=== PATIENT | male | born 1960 | race Caucasian/White ===

== ENCOUNTER 2017-07-17 16:50 | Emergency (ER) | payer OTHER ==
--- NOTE | 2017-07-17 17:03 | ED AMS/SEIZURE/WEAK/DIZZY ---
History of Present Illness General Chief Complaint: General Adult Stated Complaint: POSSIBLE SEIZURE Source: patient, old records Exam Limitations: clinical condition, confusion Allergies Coded Allergies: No Known Allergies (07/17/17) Reconcile Medications Paroxetine HCl 20 MG TABLET 1 TAB PO DAILY MENTAL HEALTH (Reported) Paroxetine HCl 40 MG TABLET 1 TAB PO DAILY MENTAL HEALTH (Reported) Thiamine HCl (Vitamin B-1) 100 MG TABLET 1 TAB PO D HEALTH SUPPLEMENT ( Reported) Triage Note: PT TO ED BY AMBULANCE WITH REPORT OF QUESTIONABLE SEIZURE YESTERDAY AND TODAY. PTS NEIGHBORS CALLED [phone] LAST NIGHT WHEN THEY HEARD PT FALL. PT REFUSED TRANSPORT TO HOSPITAL AT THAT TIME. REPORTS FALL TODAY AGAIN AND UNSURE IF HE HAD A SEIZURE. DENIES HX OF. NOT ON BLOOD THINNERS. ADMITS TO DRINKING ONE BEER TODAY. ABRASIONS NOTED TO FOREHEAD AND NOSE. LACERATION NOTED TO LOWER LIP. Triage Nurses Notes Reviewed? 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, who presents emergency room in which history is limited due to patient having moments of syncope versus loss of consciousness versus seizure-like activity or patient states that yesterday he does not recall the events noted by EMS in which EMS states that they received a phone call from a neighbor for concerns of a fall or seizure like activity or EMS states that they evaluated patient yesterday had skin abrasions and facial wounds however patient refused EMS transport to ER Patient states that today he slept all day EMS state that they received another phone call from a neighbor hearing possible seizure like activity or a fall and patient's residency patient again does not recall the events Patient states that this is been going on "for some time" patient states he had one beer today and drinks 1-3 beers a day denies any seizure withdrawal history of alcohol denies any illicit drug use does smoke tobacco Patient currently complains of headache and facial pain and left anterior chest wall pain that's made worse with palpation Denies any abdominal pain nausea vomiting blurred vision neck pain back pain shortness of breath hemoptysis cough Denies any tongue biting or bowel and bladder incontinence episodes (Ash JAIME,Alvin) Vital Signs & Intake/Output Vital Signs & Intake/Output Vital Signs Date Time Temp Pulse Resp B/P B/P Pulse O2 O2 Flow FiO2 Mean Ox Delivery Rate 07/17 2004 98.5 81 19 130/83 97 Room Air 07/17 1951 98.5 74 18 127/88 95 Room Air 07/17 1817 Room Air 07/17 1659 98.5 87 19 137/87 97 (Kassidy PASCAL,Go Clements) Past History Travel History Traveled to [place] past 21 day No Medical History Any Pertinent Medical History? see below for history Cardiovascular: hypertension, hyperlipidemia Psychiatric: depression Endocrine: diabetes Surgical History Surgical History: non-contributory Psychosocial History What is your primary language Romanian Tobacco Use: Current Daily Use Daily Tobacco Use Amount/Type: => 5 Cigarettes daily ETOH Use: heavy use Illicit Drug Use: denies illicit drug use Family History Hx Contributory? No (Alvin Ronquillo) Review of Systems Review of Systems Constitutional: Reports: no symptoms. EENTM: Denies: blurred vision, double vision, visual changes. Respiratory: Reports: see HPI. Denies: cough, short of breath. Cardiovascular: Reports: see HPI, syncope. GI: Reports: no symptoms. Genitourinary: Reports: no symptoms. Musculoskeletal: Reports: no symptoms. Skin: Reports: no symptoms. Neurological/Psychological: Reports: see HPI, headache. Hematologic/Endocrine: Reports: see HPI, bleeding. Immunologic/Allergic: Reports: no symptoms. All Other Systems: Reviewed and Negative (Alvin Ronquillo) Physical Exam Physical Exam General Appearance: no apparent distress, comfortable Head: evidence of injury Eyes: Bilateral: PERRL, EOMI, other. Ears, Nose, Throat: normal pharynx, normal ENT inspection, hearing grossly normal Neck: normal inspection, no midline tenderness Respiratory: normal breath sounds, no respiratory distress Cardiovascular: regular rate/rhythm Peripheral Pulses: 2+ radial (R) Gastrointestinal: normal bowel sounds, soft, non-tender Extremities: normal range of motion Neurologic/Psych: no motor/sensory deficits, awake, alert, oriented x 3 Comments: PUPIL RIGHT 5 DILATION PUPIL LEFT 4 DILATION Diagram Body: 1) Normal inspection noted point tenderness upon palpation 2) Noted generalized superficial skin abrasions to forehead and nose 3) Noted swelling and point tenderness and well-healing laceration of the interior next area lower lip No dental trauma Core Measures ACS in differential dx? No CVA/TIA Diagnosis No Sepsis Present: No Sepsis Focused Exam Completed? No (Alvin Ronquillo) Progress Differential Diagnosis: arrythmia, alcohol intoxication, anemia, benign positional vertigo, CVA/stroke, dehydration, drug intoxication, encephalitis, electrolyte imbalance, GI bleed, hypoglycemia, hypoxia, intracranial Hem., intracranial mass/tumor, labrynthitis, meningitis, Meniere's disease, migraine STEARNS, multiple sclerosis, pneumonia, postural hypotension, presyncope, post- traumatic vertigo, sepsis, seizure disorder, subarachnoid Hem., UTI/pyelo, vertebrobasilar insuff Diagnostic Imaging: Viewed by Me: CT Scan. Radiology Impression: acute abnormality Initial ED EKG: normal p-waves, normal QRS complex, normal sinus rhythm, 84 BPM, NSR Comments: PATIENT: JODIE LI PRESENT AGE: 57 PATIENT ACCOUNT NO: [id number] : 56 LOCATION: [facility] ORDERING PHYSICIAN: Alvin JAIME SERVICE DATE: 07/17/17-1712 EXAM TYPE: CAT - CT CHEST WO IV CONTRAST EXAMINATION: CT CHEST WITHOUT CONTRAST CLINICAL INFORMATION: Trauma. COMPARISON: Prior screening CT July 2016. TECHNIQUE: Multidetector volumetric CT imaging of the chest was done. Axial MIP volume rendering provided. Sagittal and coronal reformatted images were obtained. DLP: 255.06 mGy-cm FINDINGS: LUNGS: Small calcified granuloma measuring 1 mm left lower lobe, unchanged. Right fissural nodule, unchanged, on image 287 series 5 measuring 5 mm. A 2 mm nodule density left upper lobe on axial image 200 series 5, unchanged. MEDIASTINUM: The mediastinum is normal. PLEURA: There is no pleu (Ash JAIME,Alvin) Plan of Care: Orders Procedure Date/time Status LACTIC ACID 07/17 2012 Active Add-on Test (ER Only) 07/17 1832 Active PARTIAL THROMBOPLASTIN TIME 07/17 1722 Complete PROTHROMBIN TIME 07/17 1722 Complete Telemetry/Meat Market Manager 07/17 1713 Active URINE DRUG SCREEN FOR ER ONLY 07/17 1713 Active URINALYSIS 07/17 1713 Active TROPONIN LEVEL 07/17 1713 Complete PROLACTIN 07/17 1713 Complete LACTIC ACID 07/17 1713 Complete ETHANOL 07/17 1713 Complete COMPREHENSIVE METABOLIC PANEL 07/17 1713 Complete CREATINE PHOSPHOKINASE 07/17 1713 Complete CBC WITHOUT DIFFERENTIAL 07/17 1713 Complete EKG 07/17 1703 Active Laboratory Tests 07/17/17 1916: PT 11.1, INR 1.06, APTT 30 07/17/17 1812: Anion Gap 14, Estimated GFR > 60, BUN/Creatinine Ratio 15.0, Glucose 106 H, Lactic Acid 1.7, Calcium 8.2 L, Total Bilirubin 0.5, AST 28, ALT 24, Alkaline Phosphatase 73, Creatine Kinase 215 H, Troponin I < 0.01, Total Protein 6.6, Albumin 3.7, Globulin 2.9, Albumin/Globulin Ratio 1.3, Prolactin 13.3, Serum Alcohol 129.0 07/17/17 1722: CBC w Diff NO MAN DIFF REQ, RBC 4.47 L, MCV 94.0, MCH 31.8 H, MCHC 33.8, RDW 14.1, MPV 8.3, Gran % 78.8 H, Lymphocytes % 12.4 L, Monocytes % 7.9, Eosinophils % 0.5, Basophils % 0.4, Absolute Granulocytes 8.1 H, Absolute Lymphocytes 1.3, Absolute Monocytes 0.8 H, Absolute Eosinophils 0.1, Absolute Basophils 0 Patient on initial arrival shows concerns of intoxication and head injury Patient was able to follow all commands only physical abnormality was unequal pupils right-sided was larger, Critical findings of subdural hematoma was noted with mass shift 1830= neurosurgery was paged 191-neurosurgery was paged Discussed patient with Dr. MACHUCA who advises nothing emergently to be proceeded for patients subdural hematoma however due to her limited availability in the upcoming days that if repeat images are worse for surgical intervention that patient will be better served at [facility] DR. MONTERROSO WAS AWARE OF TRANSFER Discussed transfer with patient who agrees and signed transfer paperwork CT scan of neck and maxillofacial and chest was unremarkable blood work unremarkable Discussed patient with trauma surgeon Dr. JUSTIN who accepted patient and is aware Discussed patient with your Dr. Jenkins who accepted patient is aware of the ED TO ED transfer on UPON TRANSFER patient was stable (Ash JAIME,Alvin) Comments: Patient's case discussed with cafeteria team leader. The emergency department to provide additional information. The patient has been evaluated for syncopal episodes and an event recorder is planned. (Kassidy PASCAL,Go Clements) Departure Departure Disposition: [facility] (AC[facility]) Condition: Stable Clinical Impression Primary Impression: Subdural hematoma Secondary Impressions: ETOH abuse Referrals: Basia VARGAS,Johan Tesfaye (PCP/Family) Departure Forms: Customer Survey General Discharge Information (Alvin Ronquillo) PA/[employer] PRINTING MACHINIST Co-Sign Statement Statement: ED Attending supervision documentation- [X] I saw and evaluated the patient. I have also reviewed all the pertinent lab results and diagnostic results. I agree with the findings and the plan of care as documented in the PA's/[employer] PRINTING MACHINIST's documentation. Patient presents for evaluation of injury sustained status post fall yesterday. Apparently there is also some question of a possible seizure although the patient himself cannot recall what occurred last night. Physical examination reveals a lower lip abrasion and laceration and abrasion over the nose. The right pupil is about 1 mm greater than the left foot both are reactive to light and there are no focal neurologic deficits at this time (18:3O). [] I have reviewed the ED Record and agree with the PA's/[employer] PRINTING MACHINIST's documentation. [] Additions or exceptions (if any) to the PAs/[employer] PRINTING MACHINIST's note and plan are summarized below: [] (Kassidy PASCAL,Go Clements) Critical Care Note Critical Care Note Critical Care Time: 30-74 min (Alvin Ronquillo)
[2017-07-17 17:33] LABS: ABSOLUTE BASOPHIL COUNT 0 /CUMM (0.0-0.2); ABSOLUTE EOSINOPHIL COUNT 0.1 /CUMM (0.0-0.7); ABSOLUTE GRANULOCYTE CT 8.1 /CUMM (1.4-6.5); ABSOLUTE LYMPH COUNT 1.3 /CUMM (1.2-3.4); ABSOLUTE MONOCYTE COUNT 0.8 /CUMM (0.10-0.60); BASOPHIL % 0.4 % (0.0-2.0); EOSINOPHIL % 0.5 % (0-5); GRANULOCYTE % 78.8 % (42.2-75.2); MEAN CORPUSCULAR HGB 31.8 PG (27.0-31.0); MEAN CORPUSCULAR HGB CONC 33.8 G/DL (33.0-37.0); MEAN PLATELET VOLUME 8.3 FL (7.4-10.4); PLATELET COUNT 243 /CUMM (130-400); RBC DISTRIBUTION WIDTH 14.1 % (11.5-14.5); RED BLOOD CELL CT 4.47 /CUMM (4.70-6.10)
--- NOTE | 2017-07-17 18:23 | CT SCAN REPORT ---
EXAMINATION: CT CHEST WITHOUT CONTRAST CLINICAL INFORMATION: Trauma. COMPARISON: Prior screening CT July 2016. TECHNIQUE: Multidetector volumetric CT imaging of the chest was done. Axial MIP volume rendering provided. Sagittal and coronal reformatted images were obtained. DLP: 255.06 mGy-cm FINDINGS: LUNGS: Small calcified granuloma measuring 1 mm left lower lobe, unchanged. Right fissural nodule, unchanged, on image 287 series 5 measuring 5 mm. A 2 mm nodule density left upper lobe on axial image 200 series 5, unchanged. MEDIASTINUM: The mediastinum is normal. PLEURA: There is no pleural effusion. No pleural mass or thickening. AXILLA: No lymphadenopathy. UPPER ABDOMEN: Unremarkable. OSSEOUS STRUCTURES: Unremarkable. IMPRESSION: 1. No acute abnormality. 2. Tiny nodules calcified and noncalcified unchanged compared with prior CT July 2016. Follow-up during annual low-dose screening CT as indicated previously.
[2017-07-17 18:36] LABS: WHITE BLOOD CELL COUNT 10.2 /CUMM (4.8-10.8)
--- NOTE | 2017-07-17 19:05 | CT SCAN REPORT ---
EXAMINATION: CT HEAD WITHOUT CONTRAST CT MAXILLOFACIAL BONES WITHOUT CONTRAST CT CERVICAL SPINE WITHOUT CONTRAST CLINICAL INFORMATION: CT head 10/02/2016. COMPARISON: Syncope. Alcohol intoxication. Head, face and chest trauma. TECHNIQUE: Multidetector volumetric CT imaging of the head, maxillofacial bones and cervical spine are acquired without intravenous contrast administration. Postprocessing is performed at a dedicated workstation. Multiplanar reformatted images are submitted. DLP: 1834.06 mGy-cm FINDINGS: CT HEAD: There is mixed acute and subacute subdural hemorrhage in the right supratentorial compartment along the frontoparietal and temporal calvarium with maximum thickness of 0.6 to 0.7 cm. There is mild mass effect over the underlying parenchyma and likely on the right lateral ventricle. No definite midline shift is noted at this time. No hydrocephalus. Mild cerebral volume loss. There is no evidence of fracture of the osseous calvarium. The mastoid air cells and middle ear cavities are well aerated. Small subgaleal hematoma is noted over the left parietal calvarium. CT MAXILLOFACIAL BONES: There is no evidence of acute fracture of the maxillofacial bones. Near-complete opacification of the left maxillary sinus. Moderate opacification of the right maxillary sinus. Mild mucosal thickening of the ethmoid air cells. Frontal sinuses appear clear. Mild mucosal thickening in the sphenoid sinuses. Deformity of the medial wall of the right orbit is a stable finding likely from prior trauma. The zygomatic arches, nasal bone and nasal septum appear intact. Temporomandibular joint alignments are normal. The globes and intraorbital contents are unremarkable. CT CERVICAL SPINE: There is no evidence of acute fracture or subluxation. There is mild reversal of the cervical lordosis which is likely related to the muscular strain or patient positioning. Posterior elements are intact and in normal alignment. Small marginal osteophytes are noted from C5 to C7. There is mild to moderate disc space narrowing at C5-C6 and C6-C7 as well as C7-T1. No tight central canal or neural foraminal stenosis. Atlantoaxial and atlantooccipital alignments are normal. No evidence of prevertebral soft tissue swelling. The thyroid gland and lung apices are unremarkable. The paraspinous soft tissues appear unremarkable. IMPRESSION: 1. Mixed acute and subacute right cerebral subdural hematoma measuring 0.6 to 0.7 cm in maximum thickness with mild mass effect over the underlying parenchyma and probably over the right lateral ventricle without definite evidence of midline shift at this time. 2. No evidence of acute fracture of the osseous calvarium. 3. No evidence of acute fracture of the maxillofacial bones. 4. No evidence of acute fracture or traumatic subluxation in the cervical spine. Mild lower cervical spondylosis. This critical result was discussed with YENI Ortega at 6:20 PM on 07/17/2017 and it was ascertained that the content and urgency of the report was understood at the time of direct communication.
[2017-07-17 19:37] LABS: PT 11.1 SEC (9.4-12.5); PTT 30 SEC (25-37)
[2017-07-17] MEDS ORDERED: VITAMIN B-1100 MG PO (19:55)
[2017-07-17] MEDS ORDERED: PAROXETINE HCL20 M1 PO (19:56)
[2017-07-17] MEDS ORDERED: PAROXETINE HCL40 M1 PO (19:56)
[2017-07-17 20:05] VITALS: BP 130/83
== END 2017-07-17 20:35 | disposition short-term general hospital (02) ==
LOC: ERH 16:50 → EDBEDREQ 19:15 → ENRESERV 19:17 → CANRESERV 19:17 → ERH 20:35 → CMPBEDREQ 07-18 12:15
PROVIDERS: Physician Assistant
DX: S06.5X0A Traumatic subdural hemorrhage without loss of consciousness, initial encounter (principal); F10.10 Alcohol abuse, uncomplicated; R07.89 Other chest pain; W19.XXXA Unspecified fall, initial encounter; Y93.9 Activity, unspecified; Y92.9 Unspecified place or not applicable
CPT/HCPCS: 80307; 93005; 93010; 96374; 99291; G0480; J0131